=== PATIENT | male | born 1965 | race Caucasian/White ===

== ENCOUNTER → 2017-05-19 | Outpatient (CLI) | payer OTHER | END | disposition home or self-care (01) | LOC: KCIC MRI 09:07 | DX: M51.16 Intervertebral disc disorders with radiculopathy, lumbar region (principal) | CPT/HCPCS: 72148 ==

== ENCOUNTER → 2017-06-30 | Outpatient (CLI) | payer OTHER ==
[2017-07-01 02:19] LABS: MRSA BY PCR Negative (Negative)
== END | disposition home or self-care (01) ==
LOC: SURGPAT 13:16
DX: Z01.818 Encounter for other preprocedural examination (principal); M51.16 Intervertebral disc disorders with radiculopathy, lumbar region; M48.061 Spinal stenosis, lumbar region without neurogenic claudication
CPT/HCPCS: 87641

== ENCOUNTER 2017-07-03 08:21 | Day surgery (SDC) | payer OTHER ==
[~2017-07-03 08:21] MED LIST: BUPIVAC MPF-EPI 0.5%-1:200000 30 ML VIAL. INJ; HYDROmorphone 2 MG/ML VIAL IV; LIDOCAINE 1% PF 2 ML VIAL. ID; MORPHINE SULFATE 4 MG/ML DISP.SYRIN. IV; ONDANSETRON PF 4 MG/2 ML VIAL. IV; PROCHLORPERAZINE 10 MG/2 ML VIAL. IV; ceFAZolin 2GM PREMIX 2 GM/50 ML BAG IV; fentaNYL PF VIAL 100 MCG/2 ML VIAL IV
[2017-07-03 09:10] LABS: POC GLUCOSE 211 mg/dL (70-99)
[2017-07-03] MEDS: IV RINGERS,LACTATED 1000ML 1,000 ML IV (09:11)
[2017-07-03] MEDS ORDERED: ONDANSETRON PF 4 MG/2 ML VIAL. (10:11)
[2017-07-03] MEDS ORDERED: FAMOTIDINE 20 MG/2 ML VIAL (10:11)
[2017-07-03] MEDS ORDERED: DEXAMETHASONE SOD PHOS 20 MG/5 ML VIAL. (10:11)
[2017-07-03] MEDS ORDERED: LIDOCAINE 2% PF Vial for OR 5 ML VIAL. (10:11)
[2017-07-03] MEDS ORDERED: MIDAZOLAM HCL/PF 2 MG/2 ML VIAL. (10:11)
[2017-07-03] MEDS ORDERED: REMIFENTANIL 2 MG VIAL. IV (10:11)
[2017-07-03] MEDS ORDERED: fentaNYL PF VIAL 100 MCG/2 ML VIAL (10:11)
[2017-07-03] MEDS ORDERED: PROPOFOL 20 ML IV (10:11)
[2017-07-03] MEDS ORDERED: PROPOFOL 50 ML IV ×3 (10:11→14:06)
[2017-07-03] MEDS ORDERED: ROCURONIUM 50 MG/5 ML VIAL. (10:11)
[2017-07-03] MEDS ORDERED: SUCCINYLCHOLINE 200 MG/10 ML VIAL. (11:47)
[2017-07-03] MEDS ORDERED: PHENYLEPHRINE 10 MG/ML VIAL. ×2 (12:20)
[2017-07-03] MEDS: BACITRACIN 50,000 UNIT in IV NORMAL SALINE 1000ML BAG 1,000 ML IRR (12:38)
[2017-07-03] MEDS: BUPIVAC MPF-EPI 0.5%-1:200000 30 ML VIAL. (12:38)
[2017-07-03] MEDS: GELATIN SPONGE SIZE 100. (12:38)
[2017-07-03] MEDS: THROMBIN TOPICAL 20,000 UNIT SPRAY.SYRN KIT TP (12:38)
[2017-07-03] MEDS: KETOROLAC 60 MG/2 ML INJ FOR OR. (12:38)
[2017-07-03] MEDS ORDERED: REMIFENTANIL 1 MG VIAL. IV (14:04)
[2017-07-03] MEDS ORDERED: DESFLURANE > 120 MINUTES IH (14:06)
[2017-07-03] MEDS: fentaNYL PF VIAL 100 MCG/2 ML VIAL IV ×4 (15:14→16:00)
[2017-07-03 15:24] LABS: POC GLUCOSE 191 mg/dL (70-99)
[2017-07-03] MEDS ORDERED: oxyCODONE/APAP 7.5/325 1 TAB TABLET (16:05)
[2017-07-03] MEDS: oxyCODONE/APAP 7.5/325 1 TAB TABLET PO (16:06)
== END 2017-07-03 16:49 | disposition home or self-care (01) ==
LOC: SURG 08:21
DX: M51.17 Intervertebral disc disorders with radiculopathy, lumbosacral region (principal); M48.07 Spinal stenosis, lumbosacral region; M54.5 Low back pain; I10 Essential (primary) hypertension; E11.9 Type 2 diabetes mellitus without complications; Z87.828 Personal history of other (healed) physical injury and trauma; Z87.442 Personal history of urinary calculi; Z98.890 Other specified postprocedural states; Z82.49 Family history of ischemic heart disease and other diseases of the circulatory system; Z83.3 Family history of diabetes mellitus; Z87.891 Personal history of nicotine dependence; Z79.899 Other long term (current) drug therapy
CPT/HCPCS: 63030; 76000; 82962; 97161-GP; J0330; J0690; J1100; J1885; J2250; J2405; J2704; J3010; J3490; J7030; J7120; S0028